=== PATIENT | male | born 1985 | race Caucasian/White ===

== ENCOUNTER 2016-07-11 08:03 | Emergency (ER) | payer MEDICAID ==
[2016-07-11] MEDS ORDERED: DIPHENHYDRAMINE 50 MG/ML VIAL ONE ×2 (09:49→12:16)
[2016-07-11] MEDS ORDERED: SODIUM CHLORIDE 0.9% 50 ML IV ONE (09:49)
[2016-07-11] MEDS ORDERED: FAMOTIDINE 20 MG INJ ONE (09:49)
[2016-07-11] MEDS ORDERED: METOCLOPRAMIDE 10 MG/2 ML VIAL ONE ×2 (09:49→12:16)
[2016-07-11] MEDS ORDERED: MORPHINE 4 MG/ML SYR ONE (10:07)
[2016-07-11] MEDS ORDERED: SODIUM CHLORIDE 0.9% 1,000 ML ONE (12:16)
== END 2016-07-11 13:44 | disposition home or self-care (01) ==
LOC: ER 08:03
CPT/HCPCS: 74022; 76705; 96361; 96374; 96375; 96376

== ENCOUNTER 2016-07-12 13:23 | Emergency (ER) | payer MEDICAID ==
[2016-07-12] MEDS ORDERED: OPTIRAY 350 100 ML VIAL HMH IV ONE (13:24)
[2016-07-12] MEDS ORDERED: FAMOTIDINE 20 MG INJ ONE (17:46)
[2016-07-12] MEDS ORDERED: DIPHENHYDRAMINE 50 MG/ML VIAL ONE (17:46)
[2016-07-12] MEDS ORDERED: SODIUM CHLORIDE 0.9% 1,000 ML ONE (17:46)
[2016-07-12] MEDS ORDERED: METOCLOPRAMIDE 10 MG/2 ML VIAL ONE (17:46)
== END 2016-07-12 20:38 | disposition home or self-care (01) ==
LOC: ER 13:23
CPT/HCPCS: 74177; 96361; 96374; 96375